=== PATIENT | female | born 1985 | race Caucasian/White ===

== ENCOUNTER → 2021-02-22 12:53 | Outpatient (CLI) | payer OTHER, SELFPAY ==
--- NOTE | 2021-02-22 12:56 | DI.US.S_ITS ---
PROCEDURE: US OB <= 14 WEEKS FETUS INDICATIONS: VIABILITY DATING. OUTSIDE/PRIOR DATING DATA: Last menstrual period (LMP): 12/21/2020 LMP-based estimated date of delivery (TAMMY): 09/27/2021 First dating scan (date and location): 02/22/2022. Estimated date of delivery (TAMMY) from first dating scan: 10/12/2021. TECHNIQUE: Real-time scanning was performed of the fetus and maternal pelvic organs, with image documentation. Endovaginal scanning was also performed to better visualize the fetus and maternal ovaries. COMPARISON: None. FINDINGS: Embryo: [place]-rump length measuring 1 cm corresponding to 6 weeks 6 days. Heart rate: 135 Measurement variability in dating: +/- 4 weeks by LMP, +/- 7 days by mean sac diameter (use before 6 weeks gestation if crown-rump length not able to be measured), +/- 5 days by crown-rump length (up to 8 weeks 6 days gestation), +/- 7 days by crown-rump length (up to 13 weeks 6 days gestation). Maternal organs: Ovaries within normal limits, with left corpus luteal cyst . IMPRESSION: 6 week 6 day single living IUP. Dictated by: Tyler Jorge RR Interpreted: Xiang Quevedo MD on 02/22/2021 at 13:51 Transcribed by: MARCO on 02/22/2021 at 13:52 Approved by: Xiang Quevedo M.D. on 02/22/2021 at 16:02
== END ==
PROVIDERS: Referring Provider Obstetrics & Gynecology; Visit Provider Obstetrics & Gynecology
DX: Z34.01 Encounter for supervision of normal first pregnancy, first trimester (principal); Z3A.01 Less than 8 weeks gestation of pregnancy
CPT/HCPCS: 76801; 76817

== ENCOUNTER → 2021-03-13 14:21 | Outpatient (CLI) | payer OTHER, SELFPAY ==
[2021-03-13 15:35] LABS: Appearance Urine UA CLEAR; Bilirubin Urine UA NEGATIVE (NEGATIVE); Color Urine UA YELLOW; Glucose Urine UA NEGATIVE (Negative); Ketones Urine UA NEGATIVE (NEGATIVE); Leukocyte Esterase Urine UA NEGATIVE (NEGATIVE); Nitrite Urine UA NEGATIVE (Negative); Occult Blood Urine UA TRACE-INTACT (Negative); Protein Urine UA NEGATIVE (Negative); Specific Gravity Urine UA 1.015 (1.000-1.035); Urobilinogen Urine UA 0.2 E.U./dL (0.2)
[2021-03-13 15:47] LABS: Add Manual Diff / Slide Review NO; Basophils Absolute Auto 0 /uL (0-100); Basophils Percent Auto 0.3 % (0-2); Eosinophils Absolute Auto 100 /uL (0-450); Eosinophils Percent Auto 0.8 % (2-4); Hematocrit 39.4 % (36-46); Hemoglobin 13.3 g/dL (12.0-16.0); Lymphocytes Absolute Auto 2500 /uL (1100-4500); Lymphocytes Percent Auto 22.9 % (25-40); Mean Corpuscular HGB Conc 33.6 % (30-36); Mean Corpuscular Hemoglobin 31.6 PG (26-34); Mean Corpuscular Volume 94.1 fL (80-100); Monocytes Absolute Auto 600 /uL (0-900); Monocytes Percent Auto 5.9 % (3-14); Neutrophils Absolute Auto 7500 /uL (1500-7000); Neutrophils Percent Auto 70.1 % (50-75); Platelet Count 260 X10^3/uL (150-400); Red Blood Cell Count 4.19 X10^6/uL (4.0-5.2); Red Cell Distribution Width 11.8 % (11.6-14.8); White Blood Cell Count 10.8 X10^3/uL (4.5-11.0)
[2021-03-13 16:48] LABS: Hepatitis B Surface Antigen NEGATIVE s/c (NEGATIVE); Rubella Antibody IgG 35.5 IU/mL (>15)
[2021-03-13 17:04] LABS: HIV 1 & 2 Ab/Ag 4th Gen Combo NEGATIVE (NEGATIVE); Hep C Virus Ab w/Reflex Quant NEGATIVE s/c (NEGATIVE)
[2021-03-14 08:13] LABS: RPR Screen Non Reactive (Non Reactive)
[2021-03-14 14:19] LABS: Varicella IgG Antibody 1781 index (Immune >165)
== END ==
PROVIDERS: Referring Provider Obstetrics & Gynecology; Visit Provider Obstetrics & Gynecology
DX: Z34.01 Encounter for supervision of normal first pregnancy, first trimester (principal)
CPT/HCPCS: 36415; 80055; 81003; 86787; 86803; 86850; 86900; 86901; 87086; 87389

== ENCOUNTER → 2021-05-15 11:26 | Outpatient (CLI) | payer OTHER, SELFPAY ==
--- NOTE | 2021-05-15 11:27 | DI.US.S_ITS ---
PROCEDURE: US OB >= 14 WEEKS FETUS INDICATIONS: 20 week anatomy scan OUTSIDE/PRIOR DATING DATA: Last menstrual period (LMP): 12/21/2020 LMP-based estimated date of delivery (TAMMY): 09/27/2021. First dating scan (date and location): 02/22/2022. Estimated date of delivery (TAMMY) from first dating scan: 10/12/2021. The calculations are made using the ultrasound TAMMY of 10/12/2021. TECHNIQUE: Real-time scanning was performed of the fetus, with image documentation and biometric measurements. Endovaginal scanning: Yes COMPARISON: [facility], US, US OB <= 14 WEEKS FETUS, 03/13/2021, 13:59. FINDINGS: General: A single living intrauterine gestation is present. Presentation: Breech. Placenta: Placental position is anterior, with complete% a previa at this time. Amniotic fluid index: 14.4 cm, normal range is 5-24 cm. Single deepest vertical pocket is not evaluated heart rate: 145 beats per minute. Maternal cervical canal: 3.6 cm long. Normal lower limit is 2.5 cm. biometrics: Biparietal diameter: 19 weeks 1 day Head circumference: 19 weeks Abdominal circumference: 18 weeks 6 days Femur length: 18 weeks 4 days Clinically estimated gestational age: 18 weeks 4 days Composite gestational age from present scan: 18 weeks 6 days Estimated weight and percentile: 57 g; 58th percentile limited anatomic survey secondary to positioning. Follow-up recommended. Anatomic survey: Neuro: Ventricles are non-dilated at less than 10 mm. Cisterna magna is normal at 3-11 mm. Cerebellum is normal in size and morphology. Nuchal skin fold: Normal at less than 6 mm between 14-21 weeks gestational age. Face: Suboptimally visualized. Spine: No evidence for spina bifida. Heart: Suboptimally visualized. Diaphragm: Suboptimally visualized. Stomach: Left-sided stomach is present. Kidneys: No hydronephrosis. Normal is less than 5 mm in 2nd trimester, less than 7 mm in 3rd trimester. Cord: 3-vessel cord has orthotopic insertion. Bladder: Normal in size. Extremities: All 4 extremities identified. IMPRESSION: 1. Single living IUP redemonstrated and interval growth is normal. 2. Limited anatomic survey. Follow-up is recommended. 3. Complete placenta previa at this time which can be re-evaluated on follow-up examination. We strive to produce accurate, complete, and clear reports of imaging services. To assist us in improving patient care, this report was composed using standard report templates and voice recognition software. Therefore, it may contain abnormal punctuation, insertions and/or omissions. Occasional wrong-word or sound-alike substitutions may occur. Though we review the report and make efforts to correct it, we do recommend that the report be read carefully in proper context to recognize any text inaccuracies. Dictated by: Tyler SAUER Interpreted: Xiang Quevedo MD on 05/15/2021 at 13:38 Transcribed by: MARCO on 05/15/2021 at 13:50 Approved by: Xiang Quevedo M.D. on 05/15/2021 at 16:26
[2021-05-18 01:03] LABS: AFP, Serum 45.7 ng/mL (.); Calc Gestational Age Ultrasound (.); Estriol, Free 2.31 ng/mL (.); Inhibin A, Dimeric 101.93 pg/mL (.); Inhibin A, MoM 0.65 (.); Maternal Ethnicity Caucasian (.); Maternal Weight 184 lbs (.); Number of Fetuses No (.); OSBR Risk 1 IN 10000 (.); Results Report (.); Test Results *Screen Negative* (.); hCG, MoM 0.81 (.); hCG, Serum 18019 mIU/mL (.)
== END ==
PROVIDERS: Referring Provider Obstetrics & Gynecology; Visit Provider Obstetrics & Gynecology
DX: O44.02 Complete placenta previa NOS or without hemorrhage, second trimester (principal); Z3A.18 18 weeks gestation of pregnancy
CPT/HCPCS: 36415; 76811; 76817; 82105; 82677; 84702; 86336

== ENCOUNTER → 2021-05-29 12:42 | Outpatient (CLI) | payer OTHER, SELFPAY ==
--- NOTE | 2021-05-29 12:43 | DI.US.S_ITS ---
PROCEDURE: US OB FOLLOW UP INDICATIONS: FOLLOW UP TO 20 WEEK ANATOMY SCAN OUTSIDE/PRIOR DATING DATA: Last menstrual period (LMP): 12/21/2020 LMP-based estimated date of delivery (TAMMY): 09/27/2021. First dating scan (date and location): 02/22/2022. Estimated date of delivery (TAMMY) from first dating scan: 10/12/2021. The calculations are made using the ultrasound TAMMY of 10/12/2021. TECHNIQUE: Real-time scanning was performed of the fetus, with image documentation and biometric measurements. Endovaginal scanning: No COMPARISON: [facility], , OB <= 14 WEEKS FETUS, 03/13/2021, 13:59. [facility], OB <= 14 WEEKS FETUS, 02/22/2021, 13:03. [facility], US OB >= 14 WEEKS FETUS, 05/15/2021, 12:27. FINDINGS: General: A single living intrauterine gestation is present. Presentation: Oblique. Placenta: Placental position is anterior , with complete previa redemonstrated. Amniotic fluid index: 19.7 cm, normal range is 5-24 cm. heart rate: 153 beats per minute. Maternal cervical canal: 4.3 cm cm long. Normal lower limit is 2.5 cm. Normal appearance of the heart, diaphragm and face. IMPRESSION: Single living IUP redemonstrated and today's exam demonstrating normal appearance of the four-chamber heart, cardiac outflow tracts, diaphragm, nose and lips as well as the facial profile. Complete placenta previa redemonstrated. Continued follow-up recommended. We strive to produce accurate, complete, and clear reports of imaging services. To assist us in improving patient care, this report was composed using standard report templates and voice recognition software. Therefore, it may contain abnormal punctuation, insertions and/or omissions. Occasional wrong-word or sound-alike substitutions may occur. Though we review the report and make efforts to correct it, we do recommend that the report be read carefully in proper context to recognize any text inaccuracies. Dictated by: Tyler SAUER Interpreted: Peng Lake MD on 05/29/2021 at 14:29 Transcribed by: TROY on 05/29/2021 at 14:33 Approved by: Peng Lake M.D. on 05/31/2021 at 16:00
== END ==
PROVIDERS: Referring Provider Obstetrics & Gynecology; Visit Provider Obstetrics & Gynecology
DX: Z36.2 Encounter for other antenatal screening follow-up (principal); Z3A.20 20 weeks gestation of pregnancy
CPT/HCPCS: 76816; 76817

== ENCOUNTER → 2021-06-28 08:09 | Outpatient (CLI) | payer OTHER, SELFPAY ==
[2021-06-28 11:43] LABS: Hematocrit 34.5 % (36-46)
[2021-06-28 12:20] LABS: GTT (PREG) 1 Hour PP 50gm Dose 104 mg/dL (76-139)
== END ==
PROVIDERS: Referring Provider Obstetrics & Gynecology; Visit Provider Obstetrics & Gynecology
DX: Z34.02 Encounter for supervision of normal first pregnancy, second trimester (principal); Z3A.25 25 weeks gestation of pregnancy
CPT/HCPCS: 36415; 82950; 85014; 85018

== ENCOUNTER → 2021-07-17 18:20 | Outpatient (ROUT) | payer OTHER, SELFPAY ==
[2021-07-17 20:10] LABS: Urine N gonorrhoeae NOT DETECTED
[2021-07-17 20:25] LABS: Urine Chlamydia NOT DETECTED
== END ==
PROVIDERS: Visit Provider Obstetrics & Gynecology
DX: Z34.02 Encounter for supervision of normal first pregnancy, second trimester (principal); Z3A.27 27 weeks gestation of pregnancy
CPT/HCPCS: 87491; 87591

== ENCOUNTER 2021-09-13 21:43 | Observation (INO) | payer OTHER, SELFPAY ==
--- NOTE | 2021-09-13 22:37 | PM.OBTRLD ---
Visit Information Visit Information Date of evaluation: 09/13/21 Primary OB Provider: Libra Hodges On-call OB Provider: Sae Duong Reason for Evaluation: Yes other Comments/Additional reasons for admission: Elliott is a 36 yo TAMMY 10/12/2021 who presents this evening with vaginal bleeding now at 35 weeks 6 days gestational age. Earlier in the day the patient was having some increased pelvic pressure and cramping associated with blood tinged mucus but the bleeding has changed to actual bright red blood per vagina without regular uterine contractions. Review of the chart shows that she had a complete previa at the time of her 20 week anatomy scan on 05/29/2021 but an in office ultrasound on 06/19/2019 to shows the margin of the placenta to be 1.36 cm from the internal os. No further studies have been performed to evaluate the placenta and/or rule out vasa previa. This is the patient's 1st episode vaginal bleeding during this and her blood type is B+. In discussing onset of bleeding with the patient, she was apparently stimulating her nipples to express colostrum 10 minutes prior to onset of bleeding and did experience some cramping prior to the onset of bleeding. [facility] Medical History Chicken pox (~1991) Encounter for IUD removal (~08/2020) Normal electrocardiogram (~09/2020) Surgical History Anesthesia History of mandibular surgery (~11/2002) History of oral surgery [place] teeth extracted (~11/2002) Family History Mother Depression Myocardial infarction Sister Depression Anxiety Ulcerative colitis Grandfather Depression Hiatal hernia Frequent falls COPD (chronic obstructive pulmonary disease) Alcoholism Tremor Pneumonia Skin cancer Prostate cancer Asthma Grandmother Chronic pain Myocardial infarction Father HOCM (hypertrophic obstructive cardiomyopathy) Asthma Grandmother Unknown family medical history Grandfather Unknown family medical history Social History marital status: number of children: 0 household members: spouse lives independently: Yes caregiver/support person: No housing: house pets and animals: No education level: college (BA at [employer], arts major. 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 ) special forets needs: No seatbelt use: always do you feel safe at home: Yes Smoking Status: Never smoker second hand exposure: No alcohol intake: former (Pre-: Social, weekends only, minimal.) substance use type: does not use during the past year weight has: decreased > 10 lbs well-balanced diet: daily or most days daily servings fruits/ve-4 caffeine: Yes (1 cup coffee, most days. ) Type(s) of exercise: walking, yoga and normal ROM and activity frequency: daily duration: 45-60 minutes/day Exam Const General: cooperative and comfortable Nutritional Appearance: average body habitus Orientation: alert and oriented x3 HENMT Head: normal to inspection Eyes General: appearance normal, both eyes and all related structures Neck Neck: normal visual inspection Resp Effort & Inspection: normal respiratory effort and able to speak in complete sentences GI Inspection: normal to inspection (Gravid contour) Palpation: soft and no hepatosplenomegaly Other: SVE deferred until placenta can be assessed by US to R/O complete/marginal/vasa previa. Minimal dark blood @ perineum; no active bleeding. Psych Appearance: grossly normal Mental Status: mental status grossly normal Speech and Movement: speech and movement normal Mood: congruent mood Affect: normal affect Attitude: cooperative Thought Process: normal Thought Content: normal Judgment: judgment good Evaluation Evaluation Baseline heart rate: 145 Variability: Moderate (11-25) monitor accelerations: Present Monitor Decelerations: Absent Category of Tracing: Reactive Status: Category l Comments: No contractions noted. SVE not performed. Diagnosis, Plan/Disposition Final Diagnosis (1) Third trimester bleeding, antepartum: Status: Acute Problem details: Bleeding has resolved spontaneously. Plan/Disposition Plan: OB US, cervical length 2.9 cm, Vertex, JULIEN 15, no previa seen. Home with F/U scheduled for 09/19/2021. Precautions reviewed. OB Disposition: home
--- NOTE | 2021-09-13 23:08 | DI.US.S_ITS ---
PROCEDURE: US OB LIMITED INDICATIONS: BLEEDING OUTSIDE/PRIOR DATING DATA: Last menstrual period (LMP): 12/21/2020. LMP-based estimated date of delivery (TAMMY): 09/27/2021. First dating scan (date and location): 02/22/2021. Estimated date of delivery (TAMMY) from first dating scan: 10/12/2021. TECHNIQUE: Real-time scanning was performed of the fetus, with image documentation. COMPARISON: [facility], OB <= 14 WEEKS FETUS, 03/13/2021, 13:59. [facility], OB >= 14 WEEKS FETUS, 05/15/2021, 12:27. [facility], OB FOLLOW UP, 05/29/2021, 13:17. [facility], OB >= 14 WEEKS FETUS, 06/19/2021, 9:38. [facility], OB >= 14 WEEKS FETUS, 07/17/2021, 13:57. FINDINGS: A single living intrauterine gestation is present. Presentation: Vertex. Placenta: Placental position is anterior, without previa. No periplacental fluid collections identified. Amniotic fluid index: 15.4 cm, normal range is 5-24 cm. Single deepest vertical pocket is 6.9 cm. heart rate: 153 beats per minute. Maternal cervical canal: 2.9 cm long. Normal lower limit is 2.5 cm. Estimated gestational age from initial scan: 35 weeks 6 days. IMPRESSION: 1. Single living intrauterine demonstrated in vertex presentation. 2. No evidence of placenta previa or periplacental fluid collections to suggest abruption. Dictated by: Ashkan Sam M.D. on 09/14/2021 at 0:04 Approved by: Ashkan Sam M.D. on 09/14/2021 at 0:08
== END 2021-09-14 00:15 | disposition home or self-care (01) ==
LOC: LABOR 21:46
PROVIDERS: Admitting Provider Obstetrics & Gynecology; PCP Obstetrics & Gynecology; Referring Provider Obstetrics & Gynecology; Visit Provider Obstetrics & Gynecology
DX: O46.93 Antepartum hemorrhage, unspecified, third trimester (principal); Z3A.35 35 weeks gestation of pregnancy
CPT/HCPCS: 59025; 59050; 76815; 76817; G0378; G0379

== ENCOUNTER → 2021-09-19 09:30 | Outpatient (CLI) | payer OTHER, SELFPAY ==
[2021-09-20 15:15] LABS: Strep Grp B PCR NEG for Grp B Strep
== END ==
PROVIDERS: Visit Provider Obstetrics & Gynecology
DX: Z34.03 Encounter for supervision of normal first pregnancy, third trimester (principal); Z3A.36 36 weeks gestation of pregnancy
CPT/HCPCS: 87653

== ENCOUNTER 2021-10-13 11:43 | Outpatient (CLI) | payer OTHER, SELFPAY | END 2021-10-13 12:30 | disposition home or self-care (01) | LOC: OB 10-17 06:36 | PROVIDERS: Referring Provider Obstetrics & Gynecology; Visit Provider Obstetrics & Gynecology | DX: O48.0 Post-term pregnancy (principal); Z3A.40 40 weeks gestation of pregnancy | CPT/HCPCS: 59025; G0378; G0379 ==

== ENCOUNTER 2021-10-17 12:40 | Outpatient (CLI) | payer OTHER, SELFPAY | END 2021-10-17 14:06 | disposition home or self-care (01) | LOC: LABOR 12:43 → OB 10-19 07:34 | PROVIDERS: Referring Provider Obstetrics & Gynecology; Visit Provider Obstetrics & Gynecology | DX: O48.0 Post-term pregnancy (principal); Z3A.40 40 weeks gestation of pregnancy | CPT/HCPCS: 59025; G0378; G0379 ==

== ENCOUNTER 2021-10-20 08:56 | Inpatient (IN) | payer OTHER, SELFPAY ==
--- NOTE | 2021-10-20 10:36 | P.HPOB_ITS ---
OB HPI Date/Time Date of admission: 10/20/21 Date Patient Seen: 10/20/21 Time Patient Seen: 10:36 History of Present Condition Chief complaint: NST TAMMY Calculator Estimated Delivery Date Method Current WG Current Estimate 10/12/21 Ultrasound #1 41w 1d Other Estimates 09/27/21 LMP (Certain) 43w 2d 10/10/21 Ultrasound #2 41w 3d Estimated Gestational Age (weeks): 41+1 : 1 Para: 0 care: good care, initiated at week # (9), number of visits (13) and pounds weight gain (21) Dating criteria OB: based on 1st trimester US only Ultrasounds: normal 1st trimester US and normal mid trimester US Obstetrical complications: none Medical complications OB: none Indications Indication for induction OB: nonreassuring APT (Subtle late decelerations on nonstress test) Preadmission Labs Last OB Lab Results: Blood Type B Positive 03/13/21 14:34 03/13/21 Antibody Screen Negative 03/13/21 14:34 03/13/21 Hematocrit 34.5 % (36-46) L 06/28/21 08:24 06/28/21 Hemoglobin 12.0 g/dL (12.0-16.0) 06/28/21 08:24 06/28/21 Hepatitis B Surface Antigen Negative s/c (NEGATIVE) 03/13/21 14:34 03/13/21 Hepatitis C Antibody Negative s/c (NEGATIVE) 03/13/21 14:34 03/13/21 Rubella Antibody 35.5 IU/mL (>15) 03/13/21 14:34 03/13/21 Varicella-Zoster IgG Antibody 1781 index (Immune >165) 03/13/21 14:34 03/13/21 Glucose 1 Hour 104 mg/dL (76-139) 06/28/21 08:24 06/28/21 Group B Streptococcus (PCR) Neg for grp b strep 09/19/21 09:30 09/19/21 -: Chlamydia screen: negative, Gonorrhea screen: negative and Urine: negative -: PAP smear: Normal Genetic Screens: Quad screen: Normal External Labs -: Urine: negative Evaluation Evaluation Baseline heart rate: 135 Variability: Moderate (11-25) monitor accelerations: Present Monitor Decelerations: Late (subtle) Contraction Frequency (minutes): 8 Uterine Contraction Intensity: Mild Status: Category ll Dilation (cm): 3 Effacement (%): 80 Dilation: 1-2 cm Effacement: >/=80% station: -1 Position of cervix: posterior Consistency: medium Cobian score: 7 PFSH Medical History Chicken pox (~1991) Encounter for IUD removal (~08/2020) Normal electrocardiogram (~09/2020) Surgical History Anesthesia History of mandibular surgery (~11/2002) History of oral surgery [place] teeth extracted (~11/2002) Family History Mother Depression Myocardial infarction Sister Depression Anxiety Ulcerative colitis Grandfather Depression Hiatal hernia Frequent falls COPD (chronic obstructive pulmonary disease) Alcoholism Tremor Pneumonia Skin cancer Prostate cancer Asthma Grandmother Chronic pain Myocardial infarction Father HOCM (hypertrophic obstructive cardiomyopathy) Asthma Grandmother Unknown family medical history Grandfather Unknown family medical history Social History marital status: number of children: 0 household members: spouse lives independently: Yes caregiver/support person: No housing: house pets and animals: No education level: college occupational status: employed 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 ) Type(s) of exercise: walking, yoga and normal ROM and activity frequency: daily duration: 45-60 minutes/day Meds Home Medications and Allergies Home Medications Medication Instructions Recorded Confirmed Type prenat.vits,ermias,[id number] 1 tab PO DAILY 03/08/21 10/19/21 History Allergies Allergy/AdvReac Type Severity Reaction Status Date / Time nickel Allergy Mild Rash,itchin Verified 10/19/21 08:34 g. OB Exam Narrative Exam Narrative: Generally: Patient is sitting up in bed, no acute distress Lungs: Clear to auscultation bilaterally Cardiovascular: Regular rate and rhythm Fundal height: 41 cm Estimated weight: 9 lb Extremities: Trace edema, 1+ DTRs Assessment and Plan Assessment and Plan Assessment and Plan narrative: Assessment: 36-year-old 1 para 0 at 41-,1/7 weeks gestation based on first trimester ultrasound with subtle late decelerations on nonstress test Favorable cervix Plan: Begin Pitocin at 1 camacho IU per minute Time Spent with Patient Total time spent with greater than 50% in coordination of care (as documented) at patient's floor/unit and/or counseling patient:: 15-24 minutes
[2021-10-20 11:17] LABS: COVID19 -Nasal RAPID Negative (Negative)
[2021-10-20] MEDS: OXYTOCIN PREMIX 30 UNIT/500 ML PLAST..BAG IV (15:51)
[2021-10-20 16:10] LABS: Add Manual Diff / Slide Review NO; Basophils Absolute Auto 100 /uL (0-100); Basophils Percent Auto 0.7 % (0-2); Eosinophils Absolute Auto 0 /uL (0-450); Eosinophils Percent Auto 0.4 % (2-4); Hematocrit 35.9 % (36-46); Hemoglobin 12.7 g/dL (12.0-16.0); Lymphocytes Absolute Auto 2300 /uL (1100-4500); Lymphocytes Percent Auto 18.5 % (25-40); Mean Corpuscular HGB Conc 35.4 % (30-36); Mean Corpuscular Hemoglobin 31.9 PG (26-34); Mean Corpuscular Volume 89.9 fL (80-100); Monocytes Absolute Auto 700 /uL (0-900); Monocytes Percent Auto 5.6 % (3-14); Neutrophils Absolute Auto 9200 /uL (1500-7000); Neutrophils Percent Auto 74.8 % (50-75); Platelet Count 172 X10^3/uL (150-400); Red Blood Cell Count 3.99 X10^6/uL (4.0-5.2); Red Cell Distribution Width 12.8 % (11.6-14.8); White Blood Cell Count 12.3 X10^3/uL (4.5-11.0)
--- NOTE | 2021-10-20 17:56 | PM.OBPNLAB ---
Date/Time Date Patient Seen: 10/20/21 Time Patient Seen: 17:56 Pain Control Pain control: tolerating well Pelvic Exam Dilation (cm): 3 Effacement (%): 80 station: -1 Amniotic membrane status: Intact Contractions Contractions on admission: irregular Monitor mode: External Pitocin rate (mU/min): 4 Contraction frequency (min): 3 Contraction duration (min): 1 Contraction pattern: Regular Contraction intensity: Mild Status status: Category l Heart Rate Baseline: 125 Monitor Accelerations: Present Monitor Decelerations: Absent Monitor Variability: Moderate Assessment and Plan Assessment: induction ongoing Plan: continuous present management Comments: Recheck at 2145, if no change, stop Pitocin and rest overnight.
[2021-10-20 18:23] VITALS: BP 131/86
[2021-10-20] MEDS: fentaNYL 100 MCG/2 ML INJ 50 MCG IV (23:14)
[2021-10-21] MEDS: ePHEDrine 50 MG/ML VIAL (01:25)
[2021-10-21] MEDS: LACTATED RINGERS 1,000 ML 100 ML IV ×2 (01:29→11:05)
--- NOTE | 2021-10-21 06:53 | PM.OBPNLAB ---
Date/Time Date Patient Seen: 10/21/21 Time Patient Seen: 06:54 Pain Control Pain control: epidural Pelvic Exam Dilation (cm): 7 Effacement (%): 85 station: 0 Amniotic membrane status: Ruptured (Clear fluid at 1835 10/20/21) Contractions Contractions on admission: irregular Monitor mode: External Contraction frequency (min): 8 Contraction duration (min): 1 Contraction pattern: Irregular Contraction intensity: Strong/Firm Status status: Category ll Heart Rate Baseline: 125 Monitor Accelerations: Present Monitor Decelerations: Late Monitor Variability: Moderate (and minimal) Assessment and Plan Assessment: active labor Comments: Restart Pitocin If no change or recurrent late decelerations, will proceed to C section
--- NOTE | 2021-10-21 07:25 | PM.OBPNLAB ---
Date/Time Date Patient Seen: 10/21/21 Time Patient Seen: 07:25 Pain Control Pain control: epidural Pelvic Exam Dilation (cm): 7 Effacement (%): 85 station: 0 Amniotic membrane status: Ruptured (Clear fluid at 1835 10/20/21) Contractions Contractions on admission: irregular Monitor mode: External Pitocin rate (mU/min): 1 Contraction frequency (min): 3 Contraction pattern: Irregular Contraction intensity: Strong/Firm Status status: Category ll Heart Rate Baseline: 125 Monitor Accelerations: Present Monitor Decelerations: Late and Recurrent Monitor Variability: Minimal Assessment and Plan Assessment: active labor Comments: Will proceed to primary C section The risks, benefits and alternatives to the procedure were explained to the patient. The risks including bleeding, infection, injury to the bowel, bladder, or ureters. She understands these risks and agrees to proceed. A full par Q was held and consent form was signed.
--- NOTE | 2021-10-21 07:27 | PM.PREOP ---
Pre-operative Note COVID-19 COVID-19 status: Negative Result date/Date tested (Pos, Neg/Pending): 10/20/21 Criteria for continued procedure: Delay expected to result in less-positive ultimate med/surg outcome and Non-surgical alternatives not available or appropriate per current SOC Interval Note History & Physical reviewed/Exam performed by Physician: Yes Changes to H&P: No H&P completed within 30 days and has changed as indicated here:: 10/20/21
--- NOTE | 2021-10-21 09:10 | SUR.OPER ---
Supine on Padded OR bed, head on pillow, safety belt at thigh, arms secured on padded arm boards at <90 degrees abduction. Bump under right buttock. Legs uncrossed with pillow under knees, gel pad to heels, tape over blanket to lower legs.
[2021-10-21] MEDS: CEFAZOLIN 2 GM/20 ML SYRINGE IV ×2 (10:41→15:15)
[2021-10-21 11:35] VITALS: BP 97/43; PULSE 72; RESP 13; TEMP 37.3; O2SAT 100
[2021-10-21 11:40] VITALS: BP 88/52; PULSE 67; RESP 11; O2SAT 100
--- NOTE | 2021-10-21 11:42 | P.OP_ITS ---
Operative Date/Time/Diagnoses Date of procedure: 10/21/21 Time of procedure: 11:42 Pre-op diagnosis: 41+2 weeks gestation intolerance of labor in Stage 1 Post-op diagnosis: same Procedure & Clinicians Procedure: Primary Low-transverse C section Same procedure as scheduled: Yes Indications: intolerance of labor 41+2 weeks gestation Surgeon: Libra Ortega Yes if Unassisted: No Waste And Batting Waste Chopper: Kirsten Galvan Reason for Waste And Batting Waste Chopper: The medical technician assistant was necessary to retract during entry into the abdomen and delivery of the . On closure, the medical technician assistant was necessary to retract, clip suture, and close the contralateral fascia. Anesthesia Type: Spinal Operative Notes Findings: Live male Light meconium-stained amniotic fluid Closure Type: primary Specimen(s): cord blood, cord pH and placenta Intraoperative meds administered: Duramorph, Ketorolac and Pitocin Applied: Catheter (To continuous drainage) Estimated Blood Loss (mL): 600 Blood products transfused: none Procedure in detail: The patient was taken to the operating room where she was placed in the seated position. Spinal anesthesia with Duramorph was administered. She was then placed in the dorsal supine position with a leftward tilt. She was prepped and draped in the usual sterile fashion. A timeout was performed. After spinal luis antonio lgesia was found to be adequate, a Pfannenstiel skin incision was made 2 fingerbreadths above the pubic symphysis and carried through to the underlying layer fascia. The fascia was nicked in the midline, and the incision extended bilaterally with the Baldwin scissors. The superior aspect of the fascial incision was grasped with a Daja clamps, elevated, and the underlying rectus muscles dissected off sharply and bluntly. Attention was then turned to the inferior aspect of this incision which in a similar fashion was grasped with a Daja clamps, elevated, and the underlying rectus muscles dissected off sharply and bluntly. The rectus muscles were in the midline. The peritoneum was identified, grasped between 2 hemostats, and entered sharply with the Metzenbaum scissors. This incision was extended superiorly and inferiorly with good visualization of the bladder. The bladder blade was inserted. The vesicouterine peritoneum was identified, grasped with the pickup, and entered sharply with the Metzenbaum scissors. This incision was extended bilaterally, and the bladder flap was created digitally. The bladder blade was reinserted. The lower uterine segment was incised in a transverse fashion with the scalpel. Upon entering the amniotic sac there was a small amount of light meconium- stained amniotic fluid. The 's head was delivered with vacuum assistance. The nose and mouth were suctioned with bulb suction. The remainder of the body delivered without difficulty. The cord was double clamped and cut. The was handed off to waiting RN and RT. The placenta was delivered manually. Pitocin was given in the IVF's. The uterus was cleared of all clots and debris. The uterine incision was repaired with #1 chromic in a running interlocking fashion, and a second layer the same suture was used for an imbricating layer. Hemostasis was achieved. The tubes and ovaries were examined and were found to be normal. The gutters were cleared of all clots and debris. The bladder flap was reapproximated using 2-0 Vicryl in a running fashion. The parietal peritoneum was closed using 2-0 Vicryl in a running fashion. The fascia was reapproximated using 0 Vicryl in a running fashion. The subcutaneous layer was copiously irrigated with warm normal saline. 6 simple interrupted sutures of 3- 0 Vicryl were placed to reapproximate the subcutaneous layer. The skin was closed with 4-0 undyed Vicryl in a subcuticular fashion. Steri-Strips were placed. An Aquacel dressing was placed. The uterus was expressed of a small amount of old blood. Sponge, lap, and instrument counts were correct x-2. The patient tolerated the procedure well, and was taken to PACU in stable condition. Complications: none [place] Baby 1: Gender: Male Presentation: vertex Position: Left Occiput Anterior Placental Delivery Description: Expressed Cord Vessel Description: 3 Vessels score (1 min): 9 score (5 min): 9 weight: 9 lb 15.2 oz
[2021-10-21 11:45] VITALS: BP 91/52; PULSE 67; RESP 11; O2SAT 100
[2021-10-21 11:50] VITALS: BP 91/57; PULSE 64; RESP 18; O2SAT 100
--- NOTE | 2021-10-21 12:03 | SUR.PHASEI ---
Pt arrived awake with self maintained airway, no nausea tolerated ice chips, denied pain. Report called, pt transported to room * in
[2021-10-21 12:04] VITALS: BP 103/66; PULSE 71; RESP 11; TEMP 36.9; O2SAT 100
--- NOTE | 2021-10-21 12:16 | SUR.PHASEI ---
Pt transported to room in , left with ROBIN Vigil in stable condition.
[2021-10-21] MEDS: METHYLERGONOVINE 0.2 MG/ML VIAL IM (13:02)
[2021-10-21] MEDS: TRANEXAMIC ACID 1,000 MG in SODIUM CHLORIDE 0.9% 100 ML 200 ML IV (13:12)
[2021-10-21] MEDS: miSOPROStoL 200 MCG TABLET 1000 MCG PR (13:13)
--- NOTE | 2021-10-21 13:32 | P.PNOB_ITS ---
Subjective - OB Subjective Narrative: This patient was seen approximately 2 hours s/p primary section pe rformed for intolerance of labor. The patient was noted to have increased vaginal bleeding by nursing staff, and on examination, the uterine fundus was found to be boggy and approximately 6cm above the kvng indicating immediate fundal height. On bimanual exam, a significant amount of clot was evacuated, visually over a liter. The patient's spinal anesthesia was still working well, and the patient's uterus was able to be palpable evacuated and massaged until it became firm. She was administered 0.2mg methergine IM, 1000mcg rectal cytotec, and 1g TXA IV. 30mU were put into her 1L LR, and run as a bolus. The bleeding was successfully controlled, and patient remained asymptomatic. She was briefly tachycardic but remained normotensive throughout. She was administered 2g of IV Ancef due to the bimanual exam.The patient's zambrano catheter was still in place and will remain so for the time being. QBL: 1767ccs, with approximately 100ccs elsewhere. Date Patient Seen: 10/21/21 Time Patient Seen: 13:33 Exam Vital Signs (past 8 hours): - 10/21/21 11:35 10/21/21 11:40 10/21/21 11:45 Temperature 99.2 F Pulse Rate 72 67 67 Respiratory Rate 13 11 L 11 L Blood Pressure 97/43 L 88/52 L 91/52 L Pulse Oximetry 100 100 100 10/21/21 11:50 10/21/21 12:04 Temperature 98.5 F Pulse Rate 64 71 Respiratory Rate 18 11 L Blood Pressure 91/57 L 103/66 Pulse Oximetry 100 100 Oxygen Delivery Method Room Air Const General: cooperative and comfortable Objective Labs Result Diagrams: 10/20/21 15:58 Labs: Laboratory Results - last 24 hr 10/20/21 10/20/21 15:58 15:58 WBC 12.3 H RBC 3.99 L Hgb 12.7 Hct 35.9 L MCV 89.9 MCH 31.9 MCHC 35.4 RDW 12.8 Plt Count 172 Neut % (Auto) 74.8 Lymph % (Auto) 18.5 L [place] % (Auto) 5.6 Eos % (Auto) 0.4 L Baso % (Auto) 0.7 Neut # (Auto) 9200 H Lymph # (Auto) 2300 [place] # (Auto) 700 Eos # (Auto) 0 Baso # (Auto) 100 Blood Type B Positive Antibody Screen Negative Assessment & Plan Assessment and Plan (1) hemorrhage, delivered, current hospitalization: Start date: 10/21/21 Status: Acute Plan day: 0 Comments: This patient is s/p a hemorrhage, with QBL of 1767ccs. The patient's bleeding is currently controlled with manual evacuation of clot, uterine massage, and uterotonics. The patient continues to be closely monitored though asymptomatic with stable vital signs after initial tachycardia. - Continue methergine series PO, 5x doses q4 hrs with the 2nd dose/1st PO dose at 5PM - Continue IV fluids with pitocin for now - CBC, coags and fibrinogen pending - Zambrano in place Time Spent With Patient Time: Total time spent is greater than 50% in coordination of care (as documented) at patient's floor/unit and/or counseling patient: Time with patient: Greater than 35 minutes
[2021-10-21 14:00] LABS: Prothrombin Time 11.4 SECONDS (10.1-12.7)
[2021-10-21 14:03] LABS: PTT Partial Thromboplastin Tim 27 SECONDS (26.4-36.2)
[2021-10-21 14:04] LABS: Hemoglobin 11.4 g/dL (12.0-16.0); Mean Corpuscular HGB Conc 34.6 % (30-36); Mean Corpuscular Hemoglobin 31.5 PG (26-34); Mean Corpuscular Volume 90.9 fL (80-100); Platelet Count 188 X10^3/uL (150-400); Red Blood Cell Count 3.63 X10^6/uL (4.0-5.2); Red Cell Distribution Width 12.8 % (11.6-14.8); White Blood Cell Count 23.1 X10^3/uL (4.5-11.0)
[2021-10-21 14:45] LABS: Fibrinogen 463 mg/dL (211-428)
[2021-10-21 14:58] LABS: Add Manual Diff / Slide Review YES
[2021-10-21 14:59] LABS: Neutrophils Absolute Manual 21021 /uL (3000-5900); RBC Morphology Normal Morphology; Total Cells Counted 100
[2021-10-21] MEDS: METHYLERGONOVINE 0.2 MG TABLET PO ×2 (17:36→21:32)
[2021-10-21] MEDS: KETOROLAC 30 MG/ML VIAL IV ×2 (17:36→23:36)
[2021-10-22] MEDS: METHYLERGONOVINE 0.2 MG TABLET PO ×3 (01:49→09:34)
[2021-10-22] MEDS: KETOROLAC 30 MG/ML VIAL IV (05:46)
[2021-10-22 06:18] LABS: Hematocrit 25.3 % (36-46); Hemoglobin 8.8 g/dL (12.0-16.0)
[2021-10-22] MEDS: PRENATAL VIT,CALC/IRON/FOLIC 1 TABLET 1 TAB PO (09:34)
[2021-10-22] MEDS: DOCUSATE 100 MG CAPSULE 200 MG PO (09:34)
[2021-10-22] MEDS: ACETAMINOPHEN 325 MG TABLET 650 MG PO ×3 (09:35→21:09)
--- NOTE | 2021-10-22 10:36 | PM.OBPN.1 ---
Subjective - OB Subjective Patient comments: no complaints, pain well controlled and tolerating diet baby status: doing well and nursing well feeding status: exclusively breast feeding Narrative: Postop day # 1 status post primary section for intolerance of labor Date Patient Seen: 10/22/21 Time Patient Seen: 10:37 Interval history: Postop day # 1 status post primary section for intolerance of labor. Patient is tolerating a diet. She has voided without the catheter. Pain is well controlled. going well. Patient had an episode of hemorrhage yesterday afternoon with 1100 cc of blood loss. Exam Vital Signs (past 8 hours): Oxygen Delivery Method Room Air Narrative Exam Narrative: Generally: Patient is sitting up in bed, no acute distress Lungs: Clear to auscultation bilaterally Cardiovascular: Regular rate and rhythm Abdomen: Soft, appropriately tender. Fundus: Firm at U -2 Incision: Clean dry and intact with Aquacel dressing Extremities: Trace edema, negative Homans Objective Labs Result Diagrams: 10/22/21 06:08 Labs: Laboratory Results - last 24 hr 10/21/21 10/21/21 10/22/21 13:40 13:40 06:08 WBC 23.1 H D RBC 3.63 L Hgb 11.4 L 8.8 L Hct 33.0 L 25.3 L MCV 90.9 MCH 31.5 MCHC 34.6 RDW 12.8 Plt Count 188 Neut % (Auto) Not Reportable Lymph % (Auto) Not Reportable [place] % (Auto) Not Reportable Eos % (Auto) Not Reportable Baso % (Auto) Not Reportable Lymph # (Auto) Not Reportable [place] # (Auto) Not Reportable Baso # (Auto) Not Reportable Total Counted 100 Seg Neutrophils % 68.0 Band Neutrophils % 23.0 H Lymphocytes % (Manual) 3.0 L Atypical Lymphs % 0.0 Monocytes % (Manual) 6.0 Eosinophils % (Manual) 0.0 L Basophils % (Manual) 0.0 Neutrophils # (Manual) 71383 H RBC Morphology Normal morphology PT 11.4 INR 1.0 APTT 27 Fibrinogen 463 H Assessment & Plan Assessment and Plan (1) hemorrhage, delivered, current hospitalization: Status: Acute Plan day: 1 plan OB: routine postop care Comments: Add simethicone Ambulate Time Spent With Patient Time: Total time spent is greater than 50% in coordination of care (as documented) at patient's floor/unit and/or counseling patient: Time with patient: 15-24 minutes
[2021-10-22] MEDS: IBUPROFEN 600 MG TABLET PO ×2 (11:41→18:17)
[2021-10-22] MEDS: SIMETHICONE 80 MG TABLET PO ×2 (11:42→18:17)
[2021-10-22] MEDS: LANOLIN OINT 7 GM 1 APPLIC TOP (13:54)
[2021-10-22] MEDS: OXYCODONE IR 5 MG TABLET PO (21:11)
[2021-10-23] MEDS: ACETAMINOPHEN 325 MG TABLET 650 MG PO (03:11)
[2021-10-23] MEDS: IBUPROFEN 600 MG TABLET PO ×2 (06:38)
[2021-10-23] MEDS: OXYCODONE IR 5 MG TABLET PO ×2 (09:06→15:44)
[2021-10-23] MEDS: DOCUSATE 100 MG CAPSULE 200 MG PO (09:07)
[2021-10-23] MEDS: PRENATAL VIT,CALC/IRON/FOLIC 1 TABLET 1 TAB PO (09:07)
[2021-10-23] MEDS: SIMETHICONE 80 MG TABLET PO (09:07)
--- NOTE | 2021-10-23 15:06 | P.DS_ITS ---
Discharge Providers Provider Date of admission: 10/20/21 08:56 Discharge Date: 10/23/21 Consults: 10/21/21 12:27 Consult to Inventory Technician Routine Comment: Discharge provider: Libra Hodges MD Summary Hospital Course Date Patient Seen: 10/23/21 Time Patient Seen: 13:05 Diagnoses: 41+2 weeks gestation Induction of labor intolerance of labor Hospital Course: Patient is a 36-year-old 1 para 1 who presented on October 20, 2021 for a scheduled nonstress test for postdates. On the nonstress test she was having some very mild contractions about 8 minutes apart. There were subtle late decelerations. We kept the patient and started Pitocin. She had a spontaneous rupture of membranes overnight. When patient got into active labor there was intolerance of labor with recurrent late decelerations with minimal [id number] variability. She underwent a primary low-transverse section on October 21, 2021 without complication. Several hours she had a hemorrhage of 1700 cc. She received Pitocin, TXA, Methergine, and rectal Cytotec to control the bleeding. The remainder of her course was unremarkable. On post op day # 2 she was tolerating a diet, was going well, she was voiding without the catheter, her pain was well controlled, no nausea or vomiting. Peripartum Data Infant Delivery Method: Emergency Section Laceration Description: None Episiotomy description: None Procedures: Pitocin induction of labor Spinal anesthesia Emergency primary section complications: uterine atony (Required TXA, Cytotec, and Methergine to control) 1: Gender: Male Disposition of : home Discharge Diagnosis (1) hemorrhage, delivered, current hospitalization: Status: Acute Status at Discharge Cognitive/behavioral status at discharge: oriented Functional status at discharge: independent ambulation Overall status at discharge: patient is progressing back to baseline Time Spent with Patient Time attestation: Total time spent providing and/or coordinating discharge services: Time spent: Less than 30 minutes Objective Labs Result Diagrams: 10/22/21 06:08 Exam Vital Signs (past 8 hours): Oxygen Delivery Method Room Air Narrative Exam Narrative: Generally: Patient walking around in room, no acute distress Fundus: Firm at U -2 Incision: Clean dry and intact with Aquacel dressing Extremities: Trace edema, negative Homans Discharge Plan Discharge Plan Patient Disposition: Home Provider Discharge Comment: Call with fever, chills, or redness or drainage around the incision Call with bleeding vaginally more than a pad an hour Tylenol 650 mg every 6 hours as needed Ibuprofen 600 mg every 6 hours as needed Stool softener Discharge orders & Medications Prescriptions: New oxycodone 5 mg tablet 5 mg PO Q4H PRN (Reason: pain) Qty: 20 0RF Continued prenat.vits,ermias,qpu-dojn-rokfi Tablet 1 tab PO DAILY 0RF Follow up/Referrals: Libra Hodges MD [Physician] - 10/26/21 (Please follow up with Dr. Hodges after Steve's appointment with Dr. Christensen on October 26. ) Diet/Activity/Treatments Diet: Diet as Tolerated Activity: No heavy lifting Skin/Wound/Dressing Care Report to your healthcare provider any signs of infection, such as:: chills, fever, increased pain, unusual drainage and unusual redness Dressing: Do not remove Visit Report/Discharge Packet Instructions: DI for , DI for Prescription Opioid Use Stand Alone Forms: Discharge: Care
== END 2021-10-23 15:50 | disposition home or self-care (01) | DRG 787 ==
PROVIDERS: Obstetrics & Gynecology; Admitting Provider Obstetrics & Gynecology; Referring Provider Obstetrics & Gynecology; Visit Provider Obstetrics & Gynecology
PROC: 10D00Z1 Extraction of Products of Conception, Low, Open Approach (ICD-10-PCS; CPT 59514; principal; 2021-10-21 07:30)
DX: O48.0 Post-term pregnancy (principal); O72.1 Other immediate postpartum hemorrhage; O77.0 Labor and delivery complicated by meconium in amniotic fluid; Z3A.41 41 weeks gestation of pregnancy; Z37.0 Single live birth; O76 Abnormality in fetal heart rate and rhythm complicating labor and delivery; Z20.822 Contact with and (suspected) exposure to COVID-19
CPT/HCPCS: 01967; 36415; 59050; 59510; 59514; 85007; 85014; 85018; 85025; 85384; 85610; 85730; 86850; 86900; 86901; 87635; C9803; G0379; J0690; J1885; J2210; J2274; J2590; J2704; J3010; S0191

== ENCOUNTER → 2023-02-06 08:29 | Outpatient (CLI) | payer OTHER, SELFPAY ==
[2023-02-06 14:58] LABS: Urine Chlamydia NOT DETECTED; Urine N gonorrhoeae NOT DETECTED
== END ==
PROVIDERS: Visit Provider Specialist
DX: Z34.81 Encounter for supervision of other normal pregnancy, first trimester (principal); Z3A.13 13 weeks gestation of pregnancy
CPT/HCPCS: 87491; 87591

== ENCOUNTER → 2023-02-06 08:38 | Outpatient (CLI) | payer OTHER, SELFPAY ==
[2023-02-06 09:31] LABS: Add Manual Diff / Slide Review NO; Basophils Absolute Auto 0 /uL (0-100); Basophils Percent Auto 0.3 % (0-2); Eosinophils Absolute Auto 100 /uL (0-450); Eosinophils Percent Auto 1.3 % (2-4); Hematocrit 36.8 % (36-46); Hemoglobin 13.1 g/dL (12.0-16.0); Lymphocytes Absolute Auto 2100 /uL (1100-4500); Lymphocytes Percent Auto 22.6 % (25-40); Mean Corpuscular HGB Conc 35.7 % (30-36); Mean Corpuscular Hemoglobin 32.7 PG (26-34); Mean Corpuscular Volume 91.5 fL (80-100); Monocytes Absolute Auto 400 /uL (0-900); Monocytes Percent Auto 4.8 % (3-14); Neutrophils Absolute Auto 6500 /uL (1500-7000); Platelet Count 190 X10^3/uL (150-400); Red Blood Cell Count 4.02 X10^6/uL (4.0-5.2); Red Cell Distribution Width 12.1 % (11.6-14.8); White Blood Cell Count 9.1 X10^3/uL (4.5-11.0)
[2023-02-07 06:13] LABS: RPR Screen Non Reactive (Non Reactive)
[2023-02-07 08:39] LABS: Varicella IgG Antibody 1252 index (Immune >165)
[2023-02-07 16:48] LABS: HIV 1 & 2 Ab/Ag 4th Gen Combo NEGATIVE (NEGATIVE); Hep C Virus Ab w/Reflex Quant NEGATIVE s/c (NEGATIVE); Hepatitis B Surface Antigen NEGATIVE s/c (NEGATIVE); Rubella Antibody IgG 40.3 IU/mL (>15)
== END ==
PROVIDERS: Referring Provider Obstetrics & Gynecology; Visit Provider Obstetrics & Gynecology
DX: Z34.81 Encounter for supervision of other normal pregnancy, first trimester (principal); Z3A.13 13 weeks gestation of pregnancy
CPT/HCPCS: 36415; 80055; 86787; 86803; 86850; 86900; 86901; 87086; 87389; 87491; 87591

== ENCOUNTER → 2023-03-12 08:45 | Outpatient (CLI) | payer OTHER, SELFPAY ==
[2023-03-14 21:50] LABS: AFP, Serum 35.5 ng/mL (.); Estriol, Free 1.32 ng/mL (.); Inhibin A, Dimeric 82.72 pg/mL (.); Maternal Ethnicity Caucasian (.); Maternal Weight 185 lbs (.); Number of Fetuses No (.); OSBR Risk 1 IN 10000 (.); Results Report (.); Test Results *Screen Negative* (.); hCG, MoM 0.38 (.); hCG, Serum 11032 mIU/mL (.)
== END ==
PROVIDERS: Referring Provider Specialist; Visit Provider Specialist
DX: Z34.92 Encounter for supervision of normal pregnancy, unspecified, second trimester (principal); Z3A.18 18 weeks gestation of pregnancy
CPT/HCPCS: 36415; 82105; 82677; 84702; 86336

== ENCOUNTER → 2023-03-28 15:10 | Outpatient (CLI) | payer OTHER, SELFPAY ==
--- NOTE | 2023-03-28 15:11 | DI.US.S_ITS ---
PROCEDURE: US OB >= 14 WEEKS FETUS INDICATIONS: 20 week anatomy OUTSIDE/PRIOR DATING DATA: Last menstrual period (LMP): 11/02/2022. LMP-based estimated date of delivery (TAMMY): 08/09/2023. First dating scan (date and location): 01/09/2023. Estimated date of delivery (TAMMY) from first dating scan: 08/12/2023. The calculations are made using the clinical TAMMY of 08/09/2023. TECHNIQUE: Real-time scanning was performed of the fetus, with image documentation and biometric measurements. COMPARISON: [facility], , OB <= 14 WEEKS FETUS, 01/09/2023, 11:58. [facility], , OB >= 14 WEEKS FETUS, 10/19/2021, 9:01. FINDINGS: General: A single living intrauterine gestation is present. Presentation: Vertex. Placenta: Placental position is anterior, without previa. Amniotic fluid index: 16.7 cm, normal range is 5-24 cm. Single deepest vertical pocket is 5.1 cm. heart rate: 152 beats per minute. Maternal cervical canal: 3.7 cm long. Normal lower limit is 2.5 cm. biometrics: Biparietal diameter: 5.1 cm, 21 weeks 4 days Head circumference: 19.0 cm, 21 weeks 2 days Abdominal circumference: 16.1 cm, 21 weeks 1 day Femur length: 3.4 cm, 20 weeks 5 days Clinically estimated gestational age: 20 weeks 6 days Composite gestational age from present scan: 21 weeks 1 day Estimated weight and percentile: 394 g, 54th percentile. Anatomic survey: Neuro: Ventricles are non-dilated at less than 10 mm. Cisterna magna is normal at 3-11 mm. Cerebellum is normal in size and morphology. Nuchal skin fold: Normal at less than 6 mm between 14-21 weeks gestational age. Face: Nose and lips, facial profile are normal. Spine: No evidence for spina bifida. Heart: 4-chambered heart is present, with normal ventricular outflow tracts. Diaphragm: Diaphragm is intact. Stomach: Left-sided stomach is present. Kidneys: No hydronephrosis. Normal is less than 5 mm in 2nd trimester, less than 7 mm in 3rd trimester. Cord: 3-vessel cord has orthotopic insertion. Bladder: Normal in size. Extremities: All 4 extremities identified. IMPRESSION: 1. [place] living intrauterine at 21 weeks 1 day based on today's ultrasound. This is concordant with the prior dating. Fetus is in the 54th percentile for weight. 2. Normal placenta and amniotic fluid. 3. Normal and complete anatomic survey. We strive to produce accurate, complete, and clear reports of imaging services. To assist us in improving patient care, this report was composed using standard report templates and voice recognition software. Therefore, it may contain abnormal punctuation, insertions and/or omissions. Occasional wrong-word or sound-alike substitutions may occur. Though we review the report and make efforts to correct it, we do recommend that the report be read carefully in proper context to recognize any text inaccuracies. Dictated by: Joseph Freeman M.D. on 03/29/2023 at 10:06 Approved by: Joseph Freeman M.D. on 03/29/2023 at 10:16
== END ==
PROVIDERS: Referring Provider Specialist; Visit Provider Specialist
DX: Z34.82 Encounter for supervision of other normal pregnancy, second trimester (principal); Z3A.20 20 weeks gestation of pregnancy
CPT/HCPCS: 76811

== ENCOUNTER → 2023-04-09 09:05 | Outpatient (CLI) | payer OTHER, SELFPAY | PROVIDERS: Visit Provider Obstetrics & Gynecology | DX: Z34.82 Encounter for supervision of other normal pregnancy, second trimester (principal); Z3A.22 22 weeks gestation of pregnancy | CPT/HCPCS: 87086 ==

== ENCOUNTER → 2023-05-07 08:12 | Outpatient (CLI) | payer OTHER, SELFPAY | PROVIDERS: Referring Provider Obstetrics & Gynecology; Visit Provider Obstetrics & Gynecology | DX: Z34.82 Encounter for supervision of other normal pregnancy, second trimester (principal); Z3A.26 26 weeks gestation of pregnancy | CPT/HCPCS: 36415 ==

== ENCOUNTER → 2023-06-04 09:33 | Outpatient (CLI) | payer OTHER, SELFPAY ==
[2023-06-04 11:06] LABS: Hematocrit 34.9 % (36-46)
[2023-06-04 11:18] LABS: GTT (PREG) 1 Hour PP 50gm Dose 111 mg/dL (76-139)
== END ==
PROVIDERS: Referring Provider Obstetrics & Gynecology; Visit Provider Obstetrics & Gynecology
DX: Z34.82 Encounter for supervision of other normal pregnancy, second trimester (principal); Z3A.26 26 weeks gestation of pregnancy
CPT/HCPCS: 82950; 85014; 85018

== ENCOUNTER → 2023-07-16 09:28 | Outpatient (CLI) | payer OTHER, SELFPAY ==
[2023-07-17 12:06] LABS: Strep Grp B PCR NEG for Grp B Strep
== END ==
PROVIDERS: Visit Provider Specialist
DX: Z34.03 Encounter for supervision of normal first pregnancy, third trimester (principal)
CPT/HCPCS: 87653

== ENCOUNTER 2023-08-01 05:37 | Inpatient (IN) | payer OTHER, SELFPAY ==
[2023-08-01 06:26] VITALS: BP 110/72
[2023-08-01 07:11] LABS: Add Manual Diff / Slide Review NO; Basophils Absolute Auto 100 /uL (0-100); Basophils Percent Auto 0.5 % (0-2); Eosinophils Absolute Auto 100 /uL (0-450); Eosinophils Percent Auto 0.6 % (2-4); Hematocrit 34.3 % (36-46); Hemoglobin 12.1 g/dL (12.0-16.0); Lymphocytes Absolute Auto 2500 /uL (1100-4500); Lymphocytes Percent Auto 24.4 % (25-40); Mean Corpuscular HGB Conc 35.3 % (30-36); Mean Corpuscular Hemoglobin 31.4 PG (26-34); Mean Corpuscular Volume 89.1 fL (80-100); Monocytes Absolute Auto 700 /uL (0-900); Monocytes Percent Auto 6.7 % (3-14); Neutrophils Absolute Auto 7000 /uL (1500-7000); Neutrophils Percent Auto 67.8 % (50-75); Platelet Count 201 X10^3/uL (150-400); Red Blood Cell Count 3.85 X10^6/uL (4.0-5.2); Red Cell Distribution Width 13.4 % (11.6-14.8); White Blood Cell Count 10.3 X10^3/uL (4.5-11.0)
[2023-08-01] MEDS: CITRIC ACID/SODIUM CITRATE 15 ML SOLUTION 30 ML PO (07:34)
[2023-08-01] MEDS: LACTATED RINGERS 1,000 ML 999 ML IV ×2 (07:34→09:01)
--- NOTE | 2023-08-01 07:40 | P.HPOB_ITS ---
OB HPI Date/Time Date of admission: 08/01/23 Date Patient Seen: 08/01/23 Time Patient Seen: 07:40 History of Present Condition Chief complaint: INPT TAMMY Calculator 2 Estimated Delivery Date Method Current WG Current Estimate 08/09/23 LMP (Certain) 38w 6d Other Estimates 08/12/23 Ultrasound #1 38w 3d Estimated Gestational Age (weeks): 39 : 2 Para: 1 care: good care, initiated at week # (9), number of visits (10) and pounds weight gain (30) Dating criteria OB: LMP confirmed by 1st trimester US Ultrasounds: normal 1st trimester US and normal mid trimester US Obstetrical complications: none Medical complications OB: none Indications Operative indications ( section): previous uterine surgery Preadmission Labs Last OB Lab Results: 2 Blood Type B Positive 08/01/23 06:12 Antibody Screen Negative 08/01/23 06:12 Hematocrit 34.3 % (36-46) L 08/01/23 06:12 Hemoglobin 12.1 g/dL (12.0-16.0) 08/01/23 06:12 Hepatitis B Surface Antigen Negative s/c (NEGATIVE) 02/06/23 09 :01 Hepatitis C Antibody Negative s/c (NEGATIVE) 02/06/23 09:01 Rubella Antibody 40.3 IU/mL (>15) 02/06/23 09:01 Varicella-Zoster IgG Antibody 1252 index (Immune >165) 02/06/23 09:01 Glucose 1 Hour 111 mg/dL (76-139) 06/04/23 10:48 Group B Streptococcus (PCR) Neg for grp b strep 07/16/23 09:28 -: Chlamydia screen: negative, Gonorrhea screen: negative and Urine: negative -: PAP smear: Normal Genetic Screens: Quad screen: Normal External Labs -: Urine: negative Prior (ies) Past Pregnancies Del. Date GA/Weeks Labor Lgth Wt Sex Route Outcome Anesthesia Place Delv Breastfeed Preg Comp Name 10/21/21 41.2 16 9 lb 15.3 oz Male live - ful l term [facility] still going as of 12/27/22 post-dates induction macrosomia other Steve Delivery Date: 10/21/21 Last Updated by: Libra Hodges MD intolerance of labor Evaluation Evaluation Baseline heart rate: 135 Variability: Moderate (11-25) monitor accelerations: Present Monitor Decelerations: Absent Status: Category l PFSH Medical History (Updated 02/05/23 @ 20:23 by Gabbie Paulson) Nickel allergy (~1999) Normal electrocardiogram (~09/2020) Chicken pox (~1991) Surgical History (Updated 02/06/23 @ 08:35 by Yolette Chino MD) Previous section complicating Previous section (~2021) Encounter for IUD removal (~08/2020) [place] teeth extracted (~11/2002) Anesthesia History of oral surgery History of mandibular surgery (~11/2002) Family History (Updated 12/27/22 @ 15:39 by Idalia Dick RN) Mother Depression Myocardial infarction Sister Depression Anxiety Ulcerative colitis Grandfather Frequent falls COPD (chronic obstructive pulmonary disease) Alcoholism Tremor Pneumonia Skin cancer Prostate cancer Asthma Depression Hiatal hernia Tongue cancer Grandmother Chronic pain Myocardial infarction Father HOCM (hypertrophic obstructive cardiomyopathy) Asthma Grandmother Unknown family medical history Grandfather Unknown family medical history Family/Other Brain cancer Prostate cancer Social History marital status: number of children: 1 household members: spouse lives independently: Yes caregiver/support person: No housing: house pets and animals: Yes (dog) education level: other (yurt) 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) current occupational exposures/hazards: No special forest needs: No travel history: over 6 months ago seatbelt use: always helmet use: Yes water heater temp set < 120 deg: Yes working smoke detector in home: Yes fire extinguisher in home: Yes carbon monox detector in home: Yes firearms in home: Yes firearms unloaded and locked: Yes do you feel safe at home: Yes Smoking Status: Never smoker second hand exposure: No alcohol intake: former (~3/week when not ) substance use type: does not use during the past year weight has: other (son is 14 months old, essentially back to pre-baby weight) well-balanced diet: daily or most days daily servings fruits/ve or more times/day caffeine: Yes (1 cup coffee, most days. ) Type(s) of exercise: walking, yoga and normal ROM and activity frequency: daily duration: 45-60 minutes/day Meds Home Medications and Allergies Home Medications Medication Instructions Recorded Confirmed Type prenat.vits,ermias,xob-puef-uqdkr 1 tab PO DAILY 03/08/21 08/01/23 History Allergies Allergy/AdvReac Type Severity Reaction Status Date / Time iodine Allergy Mild Rash Verified 07/23/23 09:01 nickel Allergy Mild Rash,itchin Verified 07/23/23 09:01 g. OB Exam Narrative Exam Narrative: Generally: Patient is sitting up in bed, no acute distress Lungs: Clear to auscultation bilaterally Cardiovascular: Regular rate and rhythm Fundal height: 38 cm Extremities: Trace edema Objective Labs 08/01/23 06:12 Labs: Laboratory Results - last 24 hr 08/01/23 06:12 WBC 10.3 RBC 3.85 L Hgb 12.1 Hct 34.3 L MCV 89.1 MCH 31.4 MCHC 35.3 RDW 13.4 Plt Count 201 Neut % (Auto) 67.8 Lymph % (Auto) 24.4 L [place] % (Auto) 6.7 Eos % (Auto) 0.6 L Baso % (Auto) 0.5 Neut # (Auto) 7000 Lymph # (Auto) 2500 [place] # (Auto) 700 Eos # (Auto) 100 Baso # (Auto) 100 Blood Type B Positive Antibody Screen Negative Assessment and Plan Assessment and Plan Assessment and Plan narrative: Assessment: 38-year-old 2 para 1 at an estimated gestational age of 39 weeks with a previous section Plan: Repeat low-transverse section The risks, benefits, and alternatives to the procedure were explained to the patient. The risks including bleeding, infection, injury to the bowel, bladder, or ureters. She understands these risks and agrees to proceed. A full par Q was held and consent form was signed. Time Spent with Patient Total time spent with greater than 50% in coordination of care (as documented) at patient's floor/unit and/or counseling patient:: less than 15 minutes
--- NOTE | 2023-08-01 07:45 | PM.PREOP ---
Pre-operative Note Interval Note History & Physical reviewed/Exam performed by Physician: Yes Changes to H&P: No H&P completed within 30 days and has changed as indicated here:: 08/01/23
[2023-08-01] MEDS: CEFAZOLIN 2 GM/100 ML PREMIX 100 ML IV (08:10)
--- NOTE | 2023-08-01 08:31 | SUR.OPER ---
Supine on padded OR bed, head on pillow, arms secured on padded arm boards at <90 degrees abduction, legs uncrossed, bump under right hip, safety belt at thigh, tape over blanket over lower legs.
--- NOTE | 2023-08-01 09:20 | PM.OBCS.1 ---
Operative Date/Time/Diagnoses Date of procedure: 08/01/23 Time of procedure: 09:20 Pre-op diagnosis: Previous C section EGA 39 weeks Post-op diagnosis: same Procedure & Clinicians Procedure: Repeat C section Same procedure as scheduled: Yes Indications: 38-year-old 2 para 1 at estimated gestational age of 39 weeks with previous section. She presents for repeat low-transverse section. Surgeon: Libra Hodges Click Yes if Unassisted: No Celery Packer: Lisa Bejarano Reason for Celery Packer: The catering assistant was necessary to retract upon entry into the abdomen and uterus. She assisted with fundal pressure upon delivery of the infant. She assisted with closure with retraction, clipping of suture, and closure of the contralateral fascia. Anesthesia Type: Spinal (with Duramorph) Operative Notes Findings: Live male infant in the direct OP presentation Nomral uterus, tubes and ovaries Closure Type: primary Specimen(s): cord blood and placenta Intraoperative meds administered: Duramorph, Ketorolac and Pitocin Applied: Catheter (San to continuous drainage) Estimated Blood Loss (mL): 600 Blood products transfused: none Procedure in detail: The patient was taken to the operating room where she was placed in the seated position. Spinal anesthesia with Duramorph was administered. The patient was then placed in the dorsal supine position with a leftward tilt. She was prepped and draped in the usual sterile fashion. A timeout was performed. After spinal analgesia was found to be adequate, a Pfannenstiel skin incision was made through the previous incision and carried through to the underlying layer fascia. The fascia was nicked in the midline, and the incision extended bilaterally with the Baldwin scissors. The superior aspect of the fascial incision was grasped with a Mansfield clamps, elevated, and the underlying rectus muscles dissected off sharply and bluntly. Attention was then turned to the inferior aspect of this incision which in a similar fashion was grasped with a Mansfield clamps, elevated, and the underlying rectus muscles dissected off sharply and bluntly. The rectus muscles were in the midline. The peritoneum was identified, grasped between 2 hemostats, and entered sharply with the Metzenbaum scissors. This incision was extended superiorly and inferiorly with good visualization of the bladder. The bladder blade was inserted. The vesicouterine peritoneum was identified, grasped with the pickup, and entered sharply with the Metzenbaum scissors. This incision was extended bilaterally, and the bladder flap was created digitally. The bladder blade was reinserted. The lower uterine segment was incised in a transverse fashion with the scalpel. Upon entering the amniotic sac there was moderate amount of clear amniotic fluid. The infant was found to be in the direct occiput posterior presentation. The nose and mouth were suctioned with bulb suction. The remainder of the body delivered without difficulty, and the was wrapped in a warm blanket. The cord was double clamped and cut after 1 minute. Cord bloods were obtained. The infant was handed off to waiting RN and RT. The placenta was delivered by expression. The uterus was cleared of all clots and debris. The uterine incision was repaired with #1 chromic in a running interlocking fashion, and a second layer the same suture was used for an imbricating layer. Hemostasis was achieved. The tubes and ovaries were examined and were found to be normal. The gutters were cleared of all clots and debris. The bladder flap was reapproximated using 2-0 Vicryl in a running fashion. The parietal peritoneum was closed using 2-0 Vicryl in a running fashion. The fascia was reapproximated using 0 Vicryl in a running fashion. The subcutaneous layer was copiously irrigated with warm normal saline. 5 simple interrupted sutures of 3-0 Vicryl were placed to reapproximate the subcutaneous layer. The skin was closed with 4-0 undyed Vicryl in a subcuticular fashion. Steri-Strips were placed. An Aquacel dressing was placed. The uterus was expressed of a small amount of old blood. Sponge, lap, and instrument counts were correct x-2. The patient tolerated the procedure well, and was taken to PACU in stable condition. Complications: none Baby 1: Infant Gender: Male Presentation: vertex Position: Occiput Posterior Placental Delivery Description: Expressed Cord Vessel Description: 3 Vessels and Clamped/Cut (After 1 minute) score (1 min): 8 score (5 min): 9 weight: 8 lb 0.6 oz Post-operative Condition: stable Disposition: PACU Aftercare: routine postop
--- NOTE | 2023-08-01 09:21 | SUR.OPER ---
Viable Baby boy delivered at 8:36. Placenta and cord blood tubes x2 given to L&D RN.
[2023-08-01 09:40] VITALS: BP 108/66; PULSE 80; RESP 12; TEMP 36.2; O2SAT 95
[2023-08-01 09:43] VITALS: BP 102/56; PULSE 83; RESP 15; O2SAT 99
[2023-08-01 09:47] VITALS: BP 109/60; PULSE 83; RESP 13; O2SAT 94
[2023-08-01 09:55] VITALS: BP 104/65; PULSE 78; RESP 12; TEMP 36.2; O2SAT 97
[2023-08-01] MEDS: diphenhydrAMINE 50 MG/ML VIAL 25 MG IV ×3 (11:34→18:50)
[2023-08-01] MEDS: KETOROLAC 30 MG/ML VIAL IV ×2 (15:31→21:10)
[2023-08-01] MEDS: ACETAMINOPHEN 325 MG TABLET 650 MG PO (18:50)
[2023-08-02] MEDS: ACETAMINOPHEN 325 MG TABLET 650 MG PO ×3 (01:48→15:47)
[2023-08-02] MEDS: KETOROLAC 30 MG/ML VIAL IV (03:37)
[2023-08-02 08:05] LABS: Hematocrit 30.3 % (36-46); Hemoglobin 10.4 g/dL (12.0-16.0)
[2023-08-02] MEDS: diphenhydrAMINE 50 MG/ML VIAL 25 MG IV (08:11)
[2023-08-02] MEDS: DOCUSATE 100 MG CAPSULE PO (09:19)
[2023-08-02] MEDS: PRENATAL VIT,CALC/IRON/FOLIC 1 TABLET 1 TAB PO (09:19)
[2023-08-02] MEDS: IBUPROFEN 600 MG TABLET PO ×2 (09:19→15:47)
[2023-08-02 10:30] VITALS: BP 107/62; PULSE 76; RESP 15; TEMP 36.5
[2023-08-02] MEDS: OXYCODONE IR 5 MG TABLET PO (14:22)
--- NOTE | 2023-08-04 15:29 | PM.OBDS.1 ---
Discharge Providers Provider Date of admission: 08/01/23 05:37 Discharge Date: 08/02/23 Primary care physician: Doctor Bashir MD Consults: 08/01/23 10:38 Consult to Principal System Software Engineer Routine Comment: Discharge provider: Libra Hodges MD Summary Hospital Course Date Patient Seen: 08/02/23 Time Patient Seen: 07:30 Diagnoses: Estimated gestational age of 39 weeks Previous section Repeat low-transverse section Hospital Course: Patient is a 38-year-old 2 para 2 who presented on August 01, 2023 for a scheduled repeat section at an estimated gestational age of 39 weeks. She underwent this procedure under spinal anesthesia without difficulty. Her course was unremarkable. She was discharged home on postop day # 1, August 02, 2023. She was tolerating a diet. She was voiding without the catheter. Pain was well controlled. She was passing flatus. was going well. She was ambulating without assistance. Peripartum Data Delivery Method: Section Procedures: Spinal anesthesia with Duramorph Repeat low-transverse section complications: none [place] 1: Gender: Male Disposition of : home Status at Discharge Cognitive/behavioral status at discharge: oriented Functional status at discharge: independent ambulation Overall status at discharge: patient is progressing back to baseline Time Spent with Patient Time attestation: Total time spent providing and/or coordinating discharge services: Time spent: Less than 30 minutes Objective Labs 08/02/23 07:45 Exam Vital Signs (past 8 hours): Oxygen Delivery Method Room Air Narrative Exam Narrative: Generally: Patient is sitting up in bed, holding , no acute distress Lungs: Clear to auscultation bilaterally Cardiovascular: Regular rate and rhythm Fundus: Firm at U -1 Incision: Clean dry and intact with Aquacel dressing Extremities: Trace edema, negative Homans Discharge Plan Discharge Plan Patient Disposition: Home Provider Discharge Comment: Call with fever, chills, redness or drainage around the incision, or bleeding vaginally more than a pad in an hour Ibuprofen 600 mg every 6 hours as needed for cramping Tylenol 650 mg every 6 hours as needed Stool softeners until bowel returns to normal Discharge orders & Medications Prescriptions: New oxycodone 5 mg tablet 5 mg PO Q4H PRN (Reason: pain) Qty: 14 0RF ibuprofen 600 mg tablet 600 mg PO Q6H PRN (Reason: cramping or pain) Qty: 30 0RF docusate sodium 250 mg capsule 250 mg PO DAILY Qty: 20 0RF Continued prenat.vits,ermias,[id number] Tablet 1 tab PO DAILY Follow up/Referrals: Libra Hodges MD [Physician] - (two week post tele appointment check in: August 15 at 4:15 pm. six week appointment check in: September 10 at 1:30pm. ) Diet/Activity/Treatments Diet: Regular Activity: Nothing in the vagina for 6 weeks. No heavy lifting for the first month Skin/Wound/Dressing Care Report to your healthcare provider any signs of infection, such as:: chills, fever, increased pain, unusual drainage and unusual redness Dressing: Remove dressing in 1 week Visit Report/Discharge Packet Instructions: DI for , DI for Prescription Opioid Use Stand Alone Forms: Patient Portal/API, Stroke Signs & Symptoms Discharge Data Primary Care Provider: Miscellaneous,Doctor
== END 2023-08-02 16:45 | disposition home or self-care (01) | DRG 788 ==
PROVIDERS: Admitting Provider Obstetrics & Gynecology; Referring Provider Obstetrics & Gynecology; Visit Provider Obstetrics & Gynecology
PROC: 10D00Z1 Extraction of Products of Conception, Low, Open Approach (ICD-10-PCS; CPT 59514; principal; 2023-08-01 07:45)
DX: O34.211 Maternal care for low transverse scar from previous cesarean delivery (principal); Z3A.39 39 weeks gestation of pregnancy; Z37.0 Single live birth
CPT/HCPCS: 36415; 59050; 59510; 59514; 85014; 85018; 85025; 86850; 86900; 86901; J0690; J1100; J1200; J1885; J2274; J2405; J2590